=== PATIENT | female | born 1965 | race Caucasian/White ===

== ENCOUNTER 2020-04-15 19:46 | Emergency (ER) | payer SELFPAY ==
[2020-04-15] MEDS ORDERED: Lidocaine 1% PF 5 ML VIAL ONE (20:15)
[2020-04-15] MEDS ORDERED: Amoxicillin/Potassium Clav 875 MG TAB ONE (20:35)
[2020-04-15] MEDS ORDERED: Acetaminophen/Codeine 30-300mg Tablet ONE (20:35)
== END 2020-04-15 20:42 | disposition home or self-care (01) ==
LOC: BURERS 19:46
DX: L02.213 Cutaneous abscess of chest wall (principal); I50.9 Heart failure, unspecified; I25.2 Old myocardial infarction; E11.9 Type 2 diabetes mellitus without complications; J44.9 Chronic obstructive pulmonary disease, unspecified; Z87.891 Personal history of nicotine dependence

== ENCOUNTER 2021-03-10 20:52 | Emergency (ER) | payer OTHER ==
[2021-03-10 21:35] LABS: #Basophils 0.1 thou/uL (0.0-0.2); #Eosinphils 0.3 thou/uL (0.0-0.7); #Lymphocytes 2.2 thou/uL (1.20-3.40); #Monocytes 0.6 thou/uL (0.11-0.59); #Neutrophils 6.2 thou/uL (1.40-6.50); %Basophils 0.7 % (0.0-1.0); %Eosinophils 2.7 % (0.0-10.0); %Lymphocytes 23.7 % (21.0-51.0); %Monocytes 6.3 % (0.0-10.0); %Neutrophils 66.6 % (42.0-75.0); Hemoglobin 14.3 g/dL (12.0-16.0); Mean Corpuscular HGB CONC 31.4 g/dL (32.0-36.0); Mean Corpuscular Hemoglobin 28.7 pg (27.0-31.0); Mean Corpuscular Volume 91.3 fL (78.0-98.0); Mean Platelet Volume 9.2 fL (7.4-10.4); Platelet Count 133 thou/uL (130-400); RBC Distribution Width 14.8 % (11.5-14.5); Red Blood Cell (RBC) Count 4.97 mill/uL (4.20-5.40); White Blood Cell (WBC) Count 9.3 thou/uL (4.8-10.8)
[2021-03-10] MEDS ORDERED: Sodium Chloride 0.9% 100 ML ONE (21:51)
[2021-03-10] MEDS ORDERED: cefTRIAXone\\ROCEPHIN 2 GM VIAL ONE (21:51)
[2021-03-10 21:52] LABS: ALT (SGPT) 22 U/L (8-55); AST (SGOT) 25 U/L (5-34); Albumin 4.5 g/dL (3.5-5.0); Alkaline Phosphatase 131 U/L (40-110); Anion Gap 16 mmol/L (10-20); BUN (Urea Nitrogen) 18 mg/dL (9.8-20.1); Bilirubin, Total 0.4 mg/dL (0.2-1.2); Calc. Creatinine Clearance 0 mL/min (70-130); Calcium 9.7 mg/dL (7.8-10.44); Carbon Dioxide 22 mmol/L (22-29); Chloride 106 mmol/L (98-107); Glucose 216 mg/dL (70-105); Lipase 66 U/L (8-78); Potassium 4.1 mmol/L (3.5-5.1); Protein, Total 7.5 g/dL (6.0-8.3); Sodium 140 mmol/L (136-145)
[2021-03-10] MEDS ORDERED: Morphine 10 MG/ML VIAL ONE (22:03)
[2021-03-11 01:17] LABS: Bilirubin Negative (Negative); Blood, Urine Trace (Negative); Clarity Clear (Clear); Glucose, Urine (Dipstick) >=1000 mg/dL (Negative); Ketone, Urine Negative (Negative); Leukocyte Negative (Negative); Nitrite Negative (Negative); Protein, Urine (Dipstick) 30 mg/dL (Neg-Trace); Urobilinogen 0.2 mg/dL (Less than 2); pH, Urine 5.5 (5.0-9.0)
[2021-03-11 01:18] LABS: Bacteria/HPF 1+ HPF (None Seen); RBC/HPF 0-3 HPF (0-3); Squamous Epithelial 0-3 HPF (0-3); WBC/HPF 0-3 HPF (0-3)
[2021-03-11 03:02] LABS: SARS-CoV-2 NAA Rapid Test Not Detected (NotDetected)
== END 2021-03-11 02:00 | disposition short-term general hospital (02) ==
LOC: BURERS 20:52
DX: L03.311 Cellulitis of abdominal wall (principal); R00.0 Tachycardia, unspecified; Z20.822 Contact with and (suspected) exposure to COVID-19; I25.2 Old myocardial infarction; E11.9 Type 2 diabetes mellitus without complications; J44.9 Chronic obstructive pulmonary disease, unspecified; Z87.891 Personal history of nicotine dependence; I50.9 Heart failure, unspecified
CPT/HCPCS: 36415; 71045; 74176; 80053; 81003; 81015; 83605; 83690; 85025; 87040; 87086; 96365; 96366; 96375; J0696; J2270; J3370; J3490; U0002

== ENCOUNTER 2023-09-08 17:52 | Emergency (ER) | payer OTHER ==
[2023-09-08] MEDS ORDERED: HYDROcodone/Acetaminophen 5/325 mg Tablet ONE (18:39)
== END 2023-09-08 20:10 | disposition home or self-care (01) ==
LOC: BURERS 17:52
DX: S30.1XXA Contusion of abdominal wall, initial encounter (principal); E11.9 Type 2 diabetes mellitus without complications; Z87.891 Personal history of nicotine dependence; W22.8XXA Striking against or struck by other objects, initial encounter
CPT/HCPCS: 71250; 74150

== ENCOUNTER 2023-11-28 16:20 | Emergency (ER) | payer OTHER | END 2023-11-28 17:33 | disposition home or self-care (01) | LOC: BURERS 16:20 | DX: S50.02XA Contusion of left elbow, initial encounter (principal); M77.8 Other enthesopathies, not elsewhere classified; I50.9 Heart failure, unspecified; J44.9 Chronic obstructive pulmonary disease, unspecified; E11.9 Type 2 diabetes mellitus without complications; Z87.891 Personal history of nicotine dependence; X58.XXXA Exposure to other specified factors, initial encounter | CPT/HCPCS: 99283 ==

== ENCOUNTER 2024-04-30 20:15 | Emergency (ER) | payer OTHER ==
[2024-04-30] MEDS ORDERED: Clindamycin 150 MG CAP ONE (20:48)
== END 2024-04-30 21:01 | disposition home or self-care (01) ==
LOC: BURERS 20:15
DX: K04.7 Periapical abscess without sinus (principal); E11.9 Type 2 diabetes mellitus without complications; J44.9 Chronic obstructive pulmonary disease, unspecified; I50.9 Heart failure, unspecified; I25.2 Old myocardial infarction; Z87.891 Personal history of nicotine dependence
CPT/HCPCS: 40800

== ENCOUNTER 2024-11-12 15:23 | Emergency (ER) | payer OTHER ==
[2024-11-12] MEDS ORDERED: Bacitracin 1 PK ONE (15:59)
== END 2024-11-12 16:14 | disposition home or self-care (01) ==
LOC: BURERS 15:23
DX: B35.3 Tinea pedis (principal); I50.9 Heart failure, unspecified; I25.2 Old myocardial infarction; E11.9 Type 2 diabetes mellitus without complications; J44.9 Chronic obstructive pulmonary disease, unspecified; Z95.5 Presence of coronary angioplasty implant and graft; Z95.0 Presence of cardiac pacemaker; Z87.891 Personal history of nicotine dependence
CPT/HCPCS: 99283